=== PATIENT | female | born 1990 ===

== ENCOUNTER 2020-04-17 09:08 | Inpatient (IN) | payer OTHER ==
[~2020-04-17] VITALS: Ht 157.5 cm; Wt 3.2 kg
[2020-04-17] MEDS ORDERED: PRENATAL TABLE1 EAC1 PO (09:18)
[2020-04-17] MEDS ORDERED: VITAMIN C500 M6 PO (09:19)
== END 2020-04-20 13:22 | disposition home or self-care (01) | DRG 788 ==
LOC: LDR 09:08 → OB/GYN 19:25
PROVIDERS: ADMIT Obstetrics & Gynecology; ATTEND Obstetrics & Gynecology
PROC: 3E0P7VZ Introduction of Hormone into Female Reproductive, Via Natural or Artificial Opening (ICD-10-PCS; 2020-04-17)
PROC: 3E033VJ Introduction of Other Hormone into Peripheral Vein, Percutaneous Approach (ICD-10-PCS; 2020-04-17)
PROC: 4A1HXCZ Monitoring of Products of Conception, Cardiac Rate, External Approach (ICD-10-PCS; 2020-04-17)
PROC: 10D00Z1 Extraction of Products of Conception, Low, Open Approach (ICD-10-PCS; principal; 2020-04-17 18:00)
DX: O61.0 Failed medical induction of labor (principal); O48.0 Post-term pregnancy; Z20.828 Contact with and (suspected) exposure to other viral communicable diseases; Z3A.40 40 weeks gestation of pregnancy; Z37.0 Single live birth